=== PATIENT | female | born 1995 | race American Indian/Alaskan Native ===

== ENCOUNTER 2017-11-04 12:20 | Emergency (ER) | payer OTHER ==
[2017-11-04 12:33] VITALS: BP 115/76; PULSE 70; TEMP 98.7; O2SAT 100
--- NOTE | 2017-11-04 12:53 | C.PDOC ---
History Of Present Illness 21-year-old female, presents to the emergency department with complaints of left knee pain. Patient states she slipped and fell on ice yesterday, causing her to dislocate her patella. States it "popped back in" on its own. Patient comes in stating knee has been progressively painful since incident. Denies numbness/weakness, or any other associated symptoms. No other complaints at this time. Time Seen by Provider: 11/04/17 12:38 Chief Complaint (Nursing): Lower Extremity Problem/Injury History Per: Patient History/Exam Limitations: no limitations Onset/Duration Of Symptoms: Days (1) Current Symptoms Are (Timing): Still Present Severity: Moderate Past Medical History Reviewed: Historical Data, Nursing Documentation, Vital Signs Vital Signs: Last Vital Signs Temp 98.7 F 11/04/17 12:25 Pulse 70 11/04/17 12:25 Resp 20 11/04/17 14:13 BP 115/76 11/04/17 12:25 Pulse Ox 100 11/04/17 19:00 Family History: States: No Known Family Hx - Social History Hx Alcohol Use: Yes Hx Substance Use: No - Immunization History Hx Tetanus Toxoid Vaccination: No Hx Influenza Vaccination: No Hx Pneumococcal Vaccination: No Review Of Systems Except As Marked, All Systems Reviewed And Found Negative. Constitutional: Negative for: Fever, Chills Gastrointestinal: Negative for: Nausea, Vomiting Musculoskeletal: Positive for: Other (left knee pain) Neurological: Negative for: Weakness, Numbness Physical Exam - Physical Exam Appears: Non-toxic, No Acute Distress Skin: Warm, Dry, No Rash Head: Atraumatic, Normacephalic Extremity: Other (Left knee: mild swelling with diffuse tenderness. ) Neurological/Psych: Oriented x3, Normal Speech ED Course And Treatment O2 Sat by Pulse Oximetry: 100 - Other Rad knee xray X-Ray: Viewed By Me, Read By Radiologist Interpretation: Accession No. : [id number]. Patient Name / ID : DANNY URBANO / [id number]. Exam Date : 11/04/2017 13:05:40 ( Approved ). Study Comment : Sex / Age : F / 21Y. Creator : Violet Allison. Dictator : Violet Allison. Web Marketing Manager : Sales Driver : Violet Welch. Approver2 : Report Date : 11/04/2017 13:31:07. My Comment : . PROCEDURE: Left Knee Radiographs. HISTORY: Pain. COMPARISON : None. FINDINGS: BONES: No fracture. JOINTS: No prominent spurring. JOINT EFFUSION: Small suprapatellar joint effusion possible. OTHER FINDINGS: A 13 x 6 mm well corticated ossification dex over the posterior intercondylar fossa - loose body suspect. IMPRESSION: Posterior intercondylar loose body aspect Medical Decision Making Medical Decision Making: Patient offered crutches and knee immobilizer , but she refuses. Patients knee will be placed in brace, and she will be discharged for outpatient f/u with ortho Disposition - Disposition Referrals: Varghese Lopez MD [Staff Provider] - Disposition: HOME/ ROUTINE Disposition Time: 13:42 Condition: GOOD Additional Instructions: Follow up with PMD within 1-2 days. Return to ED if feel worse. Prescriptions: Ibuprofen [Motrin Tab] 600 mg PO Q8 #30 tab Instructions: Knee Sprain (ED) Forms: [facility] (Jordanian), Work Excuse - Clinical Impression Clinical Impression: Knee sprain - Scribe Statement The provider has reviewed the documentation as recorded by the Scribe (Edwin Calderon) All medical record entries made by the Scribe were at my direction and personally dictated by me. I have reviewed the chart and agree that the record accurately reflects my personal performance of the history, physical exam, medical decision making, and the department course for this patient. I have also personally directed, reviewed, and agree with the discharge instructions and disposition.
--- NOTE | 2017-11-04 13:32 | RAD ---
PROCEDURE: Left Knee Radiographs. HISTORY: Pain. COMPARISON: None. FINDINGS: BONES: No fracture JOINTS: No prominent spurring. JOINT EFFUSION: Small suprapatellar joint effusion possible OTHER FINDINGS: A 13 x 6 mm well corticated ossification dex over the posterior intercondylar fossa - loose body suspect IMPRESSION: Posterior intercondylar loose body aspect
[2017-11-04 14:13] VITALS: RESP 20
== END 2017-11-04 14:13 | disposition home or self-care (01) ==
LOC: C.ER 12:20
DX: S83.92XA Sprain of unspecified site of left knee, initial encounter (principal); W00.0XXA Fall on same level due to ice and snow, initial encounter

== ENCOUNTER 2018-08-23 02:16 | Emergency (ER) | payer OTHER ==
[2018-08-23 02:29] VITALS: RESP 20
[2018-08-23] MEDS ORDERED: Apap-Butalbital-Caffeine 325-50-40mg Tab PO STA ×2 (02:58)
--- NOTE | 2018-08-23 03:06 | C.PDOC ---
Addendum entered and electronically signed by Jayro Escalante DO 08/23/18 10:07: Addendum Addendum: 08/23/18 10:05 Received a call from Dr. Kinney (radiologist) who read the CT done during the night and reports there were concerning findings; Dr. Kinney recommending patient comes to ER for an emergent MRI. Patient called ([phone]) and informed of findings. Patient expresses understanding of the findings and states she will come to the ER and follow up accordingly. Original Note: History Of Present Illness 22 year old female presents to the ER with a complaint of a headache for the past 2 days. Patient reports she has not had any improvement after taking her prescribed 600mg ibuprofen which she has taken four times since onset of headache. She describes the headache as a pounding sensation to the right periorbital area that radiates to the right side of the neck. Denies fever, URI symptoms, visual complaints, nausea, or dizziness. Patient has been experiencing headaches over the past year and is actively following a neurologist, however, she has not had any imaging done since onset. Time Seen by Provider: 08/23/18 02:39 Chief Complaint (Nursing): Headache History Per: Patient History/Exam Limitations: no limitations Onset/Duration Of Symptoms: Days (2) Current Symptoms Are (Timing): Still Present Quality: Other (Pounding) Associated Symptoms: denies: Photophobia, Blurred Vision, Nausea, Vomiting, Extremity Weakness Recent travel outside of the [place]: No Past Medical History Reviewed: Historical Data, Nursing Documentation, Vital Signs Vital Signs: Last Vital Signs Temp 98.5 F 08/23/18 02:26 Pulse 59 L 08/23/18 02:26 Resp 20 08/23/18 02:26 BP 141/90 08/23/18 02:26 Pulse Ox 100 08/23/18 02:26 - Medical History PMH: Migraine Family History: States: Unknown Family Hx - Social History Hx Alcohol Use: Yes Hx Substance Use: No - Immunization History Hx Tetanus Toxoid Vaccination: No Hx Influenza Vaccination: No Hx Pneumococcal Vaccination: No Review Of Systems Constitutional: Negative for: Fever Eyes: Negative for: Vision Change ENT: Negative for: Nose Discharge, Nose Congestion Respiratory: Negative for: Cough Gastrointestinal: Negative for: Nausea Neurological: Positive for: Headache. Negative for: Dizziness Physical Exam - Physical Exam Appears: Non-toxic Skin: Normal Color, Warm, Dry Head: Atraumatic, Normacephalic Eye(s): bilateral: Normal Inspection, PERRL, EOMI Oral Mucosa: Moist Neck: Normal, No Midline Cervical Tenderness, No Paracervical Tenderness, Supple Chest: Symmetrical, No Tenderness Cardiovascular: Rhythm Regular Respiratory: Normal Breath Sounds, No Rales, No Rhonchi, No Wheezing Extremity: Normal ROM (x4) Neurological/Psych: Oriented x3, Normal Speech, Normal Motor, Normal Sensation, Other (No focal deficits) Gait: Steady ED Course And Treatment O2 Sat by Pulse Oximetry: 100 (Room air) Pulse Ox Interpretation: Normal - CT Scan/US CT Head Other Rad Studies (CT/US): Read By Radiologist, Radiology Report Reviewed CT/US Interpretation: CT SCAN OF THE BRAIN WITHOUT IV CONTRAST. CLINICAL INDICATION: Headache. TECHNIQUE: Axial images of the brain obtained without IV contrast administration. Normal size of the ventricles and extra-axial spaces for the patient's age. Normal white matter tracts of the supratentorial brain. Normal basal ganglia and thalami. Normal brainstem. Normal cerebellum. There is no demonstrated extra-axial, intraparenchymal, or intraventricular hemorrh age. There are no findings of an acute ischemic infarction. Normal calvarium. There is no demonstrated fracture. Normal soft tissue structures. Normal visualized paranasal sinuses. IMPRESSION: Normal unenhanced CT scan of the brain. Progress Note: Fioricet administered for pain. Discussed in detail the risks and benefits of a head CT with the patient, she understands the risks and wishes to have a CT done. Head CT was negative, patient reports improvement of pain, she is resting comfortably in the ER in no acute distress, vitals are stable, will discharge home with Rx and instructions to follow up with her neurologist and PMD for further evaluation. Disposition - Disposition Referrals: [facility] [Outside] Disposition: HOME/ ROUTINE Disposition Time: 05:06 Condition: STABLE Additional Instructions: Please follow up with PMD Take medication as directed Return to ER if worse Prescriptions: Acetaminophen/Butalbital/Caf [Fioricet] 1 tab PO TID PRN #14 tab PRN Reason: Headache Instructions: Migraine Headache (DC) Forms: [employer] (Bulgarian) - Clinical Impression Clinical Impression: Migraine - PA / PRODUCTION LINE OPERATOR / Resident Statement MD/DO has reviewed & agrees with the documentation as recorded. - Scribe Statement The provider has reviewed the documentation as recorded by the Scribaurelio Jimenes All medical record entries made by the Zebibaurelio were at my direction and personally dictated by me. I have reviewed the chart and agree that the record accurately reflects my personal performance of the history, physical exam, medical decision making, and the department course for this patient. I have also personally directed, reviewed, and agree with the discharge instructions and disposition.
[2018-08-23] MEDS ORDERED: Apap-Butalbital-Caffeine 325-50-40mg Tab ONE (03:24)
[2018-08-23 05:24] VITALS: BP 117/79; PULSE 58; TEMP 98.4
[2018-08-23 06:36] VITALS: O2SAT 100
--- NOTE | 2018-08-23 08:58 | CT ---
Date of service: 08/23/2018 PROCEDURE: CT HEAD WITHOUT CONTRAST. HISTORY: severe headache COMPARISON: None available. TECHNIQUE: Axial computed tomography images were obtained through the head/brain without intravenous contrast. Radiation dose: Total exam DLP = 1104.49 mGy-cm. This CT exam was performed using one or more of the following dose reduction techniques: Automated exposure control, adjustment of the mA and/or kV according to patient size, and/or use of iterative reconstruction technique. FINDINGS: HEMORRHAGE: No intracranial hemorrhage. BRAIN: No mass effect or edema. No atrophy. Bilateral subcortical white matter hypodensities age frontoparietal region overseas series 4, image 37. Can be seen with ischemic changes-patient's young age however is no worthy.. VENTRICLES: Unremarkable. No hydrocephalus. CALVARIUM: Unremarkable. PARANASAL SINUSES: Unremarkable as visualized. No significant inflammatory changes. MASTOID AIR CELLS: Unremarkable as visualized. No inflammatory changes. OTHER FINDINGS: None. IMPRESSION: No intracranial hemorrhage or mass effect seen. Bilateral hypodensities in each frontoparietal junction-subcortical white matter location-not a typical finding seen in a 22-year-old patient. Clinical significance on known. Further evaluation recommended. Consultation with neurologist recommended. Consider MRI of the brain without with contrast. Results are discordant with that (preliminary interpretation) provided by [facility]. Comments: Study marked for PA review. The discordant findings and recommendations were also directly discussed with the ER physician Dr. Escalante at approximately 8:53 a.m. on 08/23/2018
== END 2018-08-23 05:24 | disposition home or self-care (01) ==
LOC: C.ER 02:16
DX: G43.909 Migraine, unspecified, not intractable, without status migrainosus (principal)